=== PATIENT | male | born 1985 | race Caucasian/White ===

== ENCOUNTER 2020-07-29 14:56 | Emergency (ER) | payer OTHER ==
[~2020-07-29 14:56] MED LIST: AMITRIPTYLINE 225 MG PO; LIDOCAINE30 G1 TOP; OXYCODONE-ACET1 EACH PO; PERCOCET 10-321 EACH PO; PHENERGAN12.5 M1 PO; PHENERGAN25 M1 PO; ZONISAMIDE25 MG PO
[2020-08-05] MEDS ORDERED: OXYCODONE-ACET1 EACH PO (17:34)
[2020-08-21] MEDS ORDERED: OXYCODONE-ACET1 EACH PO (13:29)
[2020-09-05] MEDS ORDERED: PHENERGAN12.5 M1 PO (18:01)
[2020-10-03] MEDS ORDERED: OXYCODONE-ACET1 EACH PO (17:56)
== END 2020-07-29 17:01 | disposition home or self-care (01) ==
LOC: FER 14:56
DX: I10 Essential (primary) hypertension (principal); G43.909 Migraine, unspecified, not intractable, without status migrainosus; G91.9 Hydrocephalus, unspecified; Z98.2 Presence of cerebrospinal fluid drainage device; Z88.5 Allergy status to narcotic agent; Z88.1 Allergy status to other antibiotic agents; Z88.8 Allergy status to other drugs, medicaments and biological substances; Z91.040 Latex allergy status
CPT/HCPCS: 70450